=== PATIENT | female | born 1960 | race Caucasian/White ===

== ENCOUNTER 2021-08-31 17:21 | Emergency (ER) | payer MEDICARE ==
[~2021-08-31] VITALS: Ht 165.1 cm; Wt 90.7 kg
[2021-08-31] MEDS ORDERED: CEPHALEXIN500 MG PO (17:33)
[2021-08-31] MEDS ORDERED: TETANUS/DIPHTHERIA TOX ADULT 0.5 ML SYR IM ONE (17:45)
== END 2021-08-31 17:42 | disposition home or self-care (01) ==
LOC: ER 17:38
DX: S61.211A Laceration without foreign body of left index finger without damage to nail, initial encounter (principal); W45.8XXA Other foreign body or object entering through skin, initial encounter
CPT/HCPCS: 90471; 99283